=== PATIENT | male | born 1990 | race Caucasian/White ===

== ENCOUNTER 2023-06-13 14:21 | Emergency (ER) | payer OTHER ==
[2023-06-13 15:27] VITALS: BP 123/78; PULSE 84
== END 2023-06-13 15:27 | disposition home or self-care (01) ==
LOC: LL.ED 14:21
DX: S69.91XA Unspecified injury of right wrist, hand and finger(s), initial encounter (principal); W20.8XXA Other cause of strike by thrown, projected or falling object, initial encounter; Y92.89 Other specified places as the place of occurrence of the external cause; Y99.0 Civilian activity done for income or pay
CPT/HCPCS: 73130-RT; 99283